=== PATIENT | male | born 1965 | race Caucasian/White ===

== ENCOUNTER 2025-01-06 15:20 | Emergency (ER) | payer OTHER ==
[~2025-01-06] VITALS: Ht 177.8 cm; Wt 100.0 kg
[2025-01-06 15:23] VITALS: PULSE 81; O2SAT 96
[2025-01-06 15:26] VITALS: BP_SYST 150; RESP 16; TEMP 37; O2SAT 95
== END 2025-01-06 18:08 | disposition home or self-care (01) ==
LOC: ER 15:20
DX: M25.511 Pain in right shoulder (principal); E78.00 Pure hypercholesterolemia, unspecified; I10 Essential (primary) hypertension; Z98.890 Other specified postprocedural states; W01.0XXA Fall on same level from slipping, tripping and stumbling without subsequent striking against object, initial encounter; Y93.89 Activity, other specified; Y92.89 Other specified places as the place of occurrence of the external cause; Y99.8 Other external cause status
CPT/HCPCS: 73030; 99283